=== PATIENT | male | born 1960 | race Caucasian/White ===

== ENCOUNTER 2017-05-28 20:54 | Emergency (ER) | payer OTHER, SELFPAY ==
[2017-05-28] MEDS ORDERED: Fluorescein Opthalmic Strip ONE (21:10)
[2017-05-28] MEDS ORDERED: Proparacaine 0.5% Opth 15 ML BOT ONE (21:10)
== END 2017-05-28 21:26 | disposition home or self-care (01) ==
LOC: ERS 20:54
DX: T15.01XA Foreign body in cornea, right eye, initial encounter (principal); H18.821 Corneal disorder due to contact lens, right eye; F17.220 Nicotine dependence, chewing tobacco, uncomplicated; X58.XXXA Exposure to other specified factors, initial encounter
CPT/HCPCS: 65205